=== PATIENT | female | born 1945 | race Caucasian/White ===

== ENCOUNTER 2017-05-28 13:15 | Emergency (ER) | payer OTHER, BC ==
[~2017-05-28] VITALS: Ht 172.7 cm; Wt 64.5 kg
[~2017-05-28 13:15] MED LIST: ALLERGY RELIEF10 M2 PO; CALTRATE 6001 TABLET PO; HEMATOGEN SOFT1 EACH PO; LIPITOR5 MG PO; MULTI COMPLETE1 EACH PO; OMEGA 3 1,0001 EACH PO; PROTONIX40 MG PO; REFRESH15 ML BOTH EYES
[2017-05-28 14:08] LABS: MCH 30.1 PG (29.0-34.0); MCHC 33.2 G/DL (30.0-36.0); MCV 90.5 FL (83-99); MEAN PLAT.VOLUME 9.1 uM^3 (9.5-12.4); PLATELET COUNT 206 K/uL (156-360); RBC DIS.WIDTH-CV 12.7 % (11.8-14.6); RBC DIS.WIDTH-SD 42.1 % (39-53); RED BLOOD COUNT 4.09 M/uL (3.80-5.20); WHITE BLOOD COUNT 3.6 K/uL (4.1-10.2)
[2017-05-28 14:21] LABS: PROTHROMBIN TIME 10.2 (9.2-11.2); PTT 31.5 (25-32)
[2017-05-28 14:30] LABS: CHLORIDE 101 mEq/L (99-109); POTASSIUM 3.7 mEq/L (3.7-5.4); SODIUM 134 mEq/L (136-147)
[2017-05-28 14:31] LABS: GLUCOSE 197 mg/dL (70-99)
[2017-05-28 14:33] LABS: ANION GAP 8 MEQ/L (2-14)
[2017-05-28 14:35] LABS: GFR ESTIMATE (CALCULATED) > 59 mL/min/
[2017-05-28 14:36] LABS: UREA NITROGEN (BUN) 11 mg/dL (9-23)
[2017-05-28] MEDS ORDERED: OCEAN BOTH NARES (15:10)
[2017-05-28 15:39] VITALS: BP 136/70
== END 2017-05-28 15:39 | disposition home or self-care (01) ==
LOC: EME 13:15
PROVIDERS: Nurse Practitioner Family
PROC: 2Y41X5Z Packing of Nasal Region using Packing Material (ICD-10-PCS; principal; 2017-05-28)
DX: R04.0 Epistaxis (principal)
CPT/HCPCS: 80048; 85027; 85610; 85730; 99281; 99284

== ENCOUNTER 2017-07-07 06:57 | Emergency (ER) | payer OTHER, BC ==
[~2017-07-07] VITALS: Ht 172.7 cm; Wt 63.5 kg
[~2017-07-07 06:57] MED LIST changes: +OCEAN BOTH NARES
[2017-07-07] MEDS ORDERED: ZANTAC300 MG PO (07:32)
[2017-07-07] MEDS ORDERED: COLACE100 MG PO (07:32)
[2017-07-07] MEDS ORDERED: METAMUCIL PACKE1 PKT PO (07:33)
[2017-07-07 08:34] LABS: EOSINOPHIL (%) 0.2 % (0-5); HEMATOCRIT 35.4 % (36.0-46.0); IMMATURE GRANULOCYTE (%) 0.2 % (0.0-0.7); INSTRUMENT ABS NEUTROPHIL CT 3.7 K/uL; LYMPHOCYTE COUNT 0.8 K/uL (1.0-2.8); MCH 30.4 PG (29.0-34.0); MCHC 33.9 G/DL (30.0-36.0); MCV 89.6 FL (83-99); MEAN PLAT.VOLUME 9.5 uM^3 (9.5-12.4); MONOCYTE (%) 8.7 % (3-12); MONOCYTE COUNT 0.4 K/uL (0-0.8); NEUTROPHIL (%) 74.1 % (45-76); NEUTROPHIL COUNT 3.7 K/uL (1.8-6.4); PLATELET COUNT 199 K/uL (156-360); RBC DIS.WIDTH-CV 12.8 % (11.8-14.6); RBC DIS.WIDTH-SD 42.5 % (39-53); RED BLOOD COUNT 3.95 M/uL (3.80-5.20); WHITE BLOOD COUNT 5.1 K/uL (4.1-10.2)
[2017-07-07 08:42] LABS: PROTHROMBIN TIME 11.2 SEC (10.2-12.9)
[2017-07-07 08:58] LABS: CHLORIDE 103 mEq/L (99-109)
[2017-07-07 08:59] LABS: POTASSIUM 3.6 mEq/L (3.7-5.4); SODIUM 137 mEq/L (136-147)
[2017-07-07 09:00] LABS: GLUCOSE 107 mg/dL (70-99)
[2017-07-07 09:02] LABS: ANION GAP 8 MEQ/L (2-14)
[2017-07-07 09:04] LABS: GFR ESTIMATE (CALCULATED) > 59 mL/min/
[2017-07-07 09:05] LABS: UREA NITROGEN (BUN) 12 mg/dL (9-23)
[2017-07-07] MEDS ORDERED: AMOXICILLIN500 MG PO (09:51)
[2017-07-07 10:44] VITALS: BP 155/77
[2017-07-07] MEDS ORDERED: ULTRACET1 TABLET PO (15:07)
== END 2017-07-07 10:47 | disposition home or self-care (01) ==
LOC: EME 06:57
PROVIDERS: Emergency Medicine
PROC: 2Y41X5Z Packing of Nasal Region using Packing Material (ICD-10-PCS; principal; 2017-07-07)
DX: R04.0 Epistaxis (principal); E78.5 Hyperlipidemia, unspecified; K21.9 Gastro-esophageal reflux disease without esophagitis
CPT/HCPCS: 80048; 85025; 85610; 99281; 99284

== ENCOUNTER 2017-07-07 13:02 | Emergency (ER) | payer OTHER, BC ==
[~2017-07-07] VITALS: Ht 172.7 cm; Wt 63.6 kg
[~2017-07-07 13:02] MED LIST changes: +AMOXICILLIN500 MG PO; +COLACE100 MG PO; +METAMUCIL PACKE1 PKT PO; +ZANTAC300 MG PO
[2017-07-07] MEDS ORDERED: ULTRACET1 TABLET PO (15:07)
[2017-07-07 15:58] VITALS: BP 132/70
== END 2017-07-07 15:59 | disposition home or self-care (01) ==
LOC: EME 13:02
PROC: 2Y41X5Z Packing of Nasal Region using Packing Material (ICD-10-PCS; principal; 2017-07-07)
DX: R04.0 Epistaxis (principal); E78.5 Hyperlipidemia, unspecified; K21.9 Gastro-esophageal reflux disease without esophagitis
CPT/HCPCS: 99281; 99284